=== PATIENT | female | born 1985 | race Caucasian/White ===

== ENCOUNTER 2020-01-11 12:23 | Emergency (ER) | payer MEDICAID, SELFPAY ==
--- NOTE | ~2020-01-11 | XR_ITS ---
EXAMINATION: XR chest 1V portable 01/11/2020 13:05 INDICATION: Transient alteration of awareness PROCEDURE: AP portable chest COMPARISON: 10/01/2018 FINDINGS: The lungs are clear. The cardiomediastinal silhouette is within normal limits. There are no pleural effusions. There is no pneumothorax suspected. IMPRESSION: 1: NO ACUTE CARDIOPULMONARY DISEASE. Reviewed, dictated and finalized at location A.
--- NOTE | ~2020-01-11 | CT_ITS ---
EXAMINATION: CT brain wo con DATE: 01/11/2020 12:29 INDICATION: Right hemiparesis and slurred speech. Slowly responding left pupil. TECHNIQUE: Computed tomography (CT) of the head was performed without intravenous contrast. Sagittal and coronal reconstructions were performed. The mA was adjusted according to patient size. Iterative reconstruction technique was employed. The dose-length product was 605.33 mGy-cm. COMPARISON: None FINDINGS: No acute intracranial hemorrhage, acute infarction or abnormal extra axial fluid collection. There is however increased attenuation of the left middle cerebral artery at the bifurcation between the ante rior and posterior branches which raises concern for thrombus. Ventricles are normal and symmetric. N o mass/mass effect. he orbits, paranasal sinuses and mastoid air cells are normal. IMPRESSION: 1. No evident acute intracranial infarct or hemorrhage, however there is increased attenuation at the bifurcation of the distal left middle cerebral artery raising concern for acute thrombus and an rolf y acute infarct could not be excluded. Dr. Daniels discussed these findings with Dr. Khalil at 12:3 5 PM. Reviewed, dictated and finalized at location A. IMPRESSION: 1. No evident acute intracranial infarct or hemorrhage, however there is increa sed attenuation at the bifurcation of the distal left middle cerebral artery ra ising concern for acute thrombus and an early acute infarct could not be exclud ed. Dr. Daniels discussed these findings with Dr. Khalil at 12:35 PM.
--- NOTE | 2020-01-11 12:32 | ECG_ITS ---
Measurements Intervals [place] Rate: 72 P: 45 FL: 152 QRS: 28 QRSD: 109 T: 9 QT: 379 QTc: 417 Interpretive Statements SINUS RHYTHM BORDERLINE ST-T WAVE ABNORMALITY- INFERIOR LEADS BORDERLINE ECG Electronically Signed On 01-11-2020 12:54:50 CDT by Ganga Shrestha D.O.
[2020-01-11 12:33] VITALS: BP 148/103; PULSE 84; RESP 18; TEMP 37.1; O2SAT 99
[2020-01-11 12:36] LABS: Glucose Point of Care 100 (65-105)
--- NOTE | 2020-01-11 12:43 | ED.NEUROSD ---
HPI - Neuro Symptoms/Deficit General Chief Complaint: Suspected CVA Stated Complaint: ?CVA Time Seen by Provider: 01/11/20 12:24 History of Present Illness HPI Narrative: Patient is a 34-year-old female who presents to the ER with strokelike symptoms. Symptom onset at 1150. Had sudden onset right-sided weakness with difficulty speaking. Patient continues to have weakness in her right arm as well as symptoms of numbness/heaviness. She also seems to have some difficulty finding some of her words. Has not had symptoms like this before. She is a smoker. She does not take any hormone contraceptives. Related Data Allergies Allergy/AdvReac Type Severity Reaction Status Date / Time codeine Allergy Unknown Verified 01/11/20 13:31 Review of Systems Review of Systems: All systems reviewed & are unremarkable except as noted in HPI and below Constitutional: Constitutional: Denies chills, Denies fever(s) and Denies weakness ENT: Denies nasal congestion and Denies sore throat Cardiovascular: Cardiovascular: Denies chest pain and Denies slow heart rate Respiratory: Respiratory: Denies cough, Denies dyspnea and Denies wheezing Gastrointestinal: Gastrointestinal: Denies abdominal pain, Denies nausea and Denies vomiting Neurologic: Reports focal weakness and Reports numbness Comments: Difficulty finding words. PMFSH Past Medical History Medical History (Updated 01/11/20 @ 13:08 by Chepe Khalil MD) No significant past medical history Surgical History Surgical History (Updated 01/11/20 @ 18:23 by Chepe Khalil MD) No significant past surgical history Social History Social History (Updated 01/11/20 @ 18:23 by Chepe Khalil MD) Smoking status: Current every day smoker Exam Narrative: Exam Narrative: GENERAL: Anxious-appearing, well-nourished, and in no acute distress. HEAD: Normocephalic, atraumatic. EYES: PERRLA and EOMI. ENT: Mucous membranes moist. CHEST: Clear to auscultation. No respiratory distress. HEART: Regular rate and rhythm. Normal peripheral pulses. ABDOMEN: Soft, nontender, nondistended. EXTREMITIES: Normal range of motion. No edema. SKIN: Warm, dry, no rash. NEURO: Significant right upper extremity drift with sensation of numbness to the right arm but sharp touch intact. Slight drift in the right lower extremity when compared to the left. [id number] testing negative. Patient having difficulty with [id number]-[id number] testing on the right side. Cranial nerves II through XII intact.. Alert and oriented x3 but is having difficulty coming with answers to basic medical questions. PSYCH: Normal mood and affect. Course Reevaluation(s) Reevaluation #1: Contacted by nursing staff. Sensation worsening. Patient a stroke scale of 8. Discussed with [facility], recommend [facility] and transfer, Dr. Martin accepted in the ER. Date: 01/11/20 Time: 13:07 Reevaluation #2: 2 separate ambulance companies unavailable to transfer patient. As this is a time dependent diagnosis and treatment [facility] medical transport will be contracted for transfer of patient. Date: 01/11/20 Time: 13:12 Reevaluation #3: [facility] is arrived to transfer the patient to [facility]. Patient's motor exam is improving however her expressive aphasia is worsening. She can tell me her name but is now unable to tell me what building she is in or what diagnosis she received. She reports she is aware of her diagnosis but cannot tell me what it is. Date: 01/11/20 Time: 13:31 Vital Signs Vital signs: Vital Signs Temperature 98.7 F 01/11/20 12:33 Pulse Rate 84 01/11/20 12:33 Respiratory Rate 18 01/11/20 12:33 Blood Pressure 148/103 H 01/11/20 12:33 Pulse Oximetry 99 01/11/20 12:33 Temperature 97.1 F L 01/11/20 13:28 Pulse Rate 64 01/11/20 13:28 Respiratory Rate 13 01/11/20 13:28 Blood Pressure 112/79 01/11/20 13:28 Pulse Oximetry 100 01/11/20 13:28 MDM - Neuro Symptoms/Deficit Lab Data Res
[2020-01-11 12:55] VITALS: BP 117/78; PULSE 83; RESP 20; O2SAT 100
[2020-01-11 12:57] VITALS: BP 117/74; PULSE 116; RESP 20
[2020-01-11 12:58] LABS: Basophils Percent Auto 0.2 % (0.2-1.2); Eosinophils Percent Auto 0.3 % (0-4.4); Hematocrit 41.3 % (37.0-47.0); Hemoglobin 14.2 g/dL (12.0-15.0); Immature Granulocyte Absolute 0.04 K/mm3 (0.00-0.031); Immature Granulocyte Percent A 0.4 % (0-0.5); Lymphocytes Absolute Auto 1.77 K/mm3 (0.9-3.2); Lymphocytes Percent Auto 15.6 % (18.3-44.2); Mean Corpuscular HGB Conc 34.4 g/dl (32-36); Monocytes Absolute Auto 0.5 K/mm3 (0.1-0.6); Monocytes Percent Auto 4.1 % (2.6-8.5); Neutrophils Percent Auto 79.4 % (45.5-73.1); Platelet Count Result 259 k/mm3 (150-375); Red Blood Count 4.44 M/mm3 (4.2-5.4); Red Cell Distribution Width 12.8 % (11.5-14.5); White Blood Count 11.4 K/mm3 (4.5-10.0)
[2020-01-11 13:07] LABS: INR 0.9; Prothrombin Time 12.3 Seconds (11.1-14.7)
[2020-01-11 13:08] LABS: Partial Thromboplastin Time 24.1 SECONDS (22.3-36.8)
[2020-01-11 13:10] VITALS: BP 116/78; PULSE 73; RESP 13; TEMP 36.8; O2SAT 100
--- NOTE | 2020-01-11 13:11 | PC.NURSE ---
report called to nina powers called for transport
[2020-01-11 13:14] LABS: Blood Urea Nitrogen 9 mg/dL (7-17); Calcium 9.1 mg/dL (8.4-10.2); Carbon Dioxide 25 mmol/L (22-30); Chloride 104 mmol/L (98-107); Estimated CRCL calculation 116 ml/min; Estimated Glomerular Filt Rate > 60; Glucose 94 mg/dL (65-105); Potassium 3.5 mmol/L (3.4-5.0); Sodium 137 mmol/L (137-145)
--- NOTE | 2020-01-11 13:23 | PC.NURSE ---
Patient is noted to have some increase in slurring and gabled speech when asked to tell me her name. EDP in room and aware. Patient informed on decision to fly her to [facility]. ED Charge has notified her family member per patient request.
[2020-01-11 13:24] VITALS: BP 108/71; PULSE 63; RESP 14; TEMP 36.6; O2SAT 98
[2020-01-11 13:28] VITALS: BP 112/79; PULSE 64; RESP 13; TEMP 36.2; O2SAT 100
--- NOTE | 2020-01-11 13:29 | PC.NURSE ---
EDP in room. Patient noted to have increased expressive aphasia. She is not able to tell us where she is or why she is here. She is awake and alert.
[2020-01-11 13:30] LABS: Troponin I < 0.012 ng/mL (0.000-0.034)
== END 2020-01-11 14:10 | disposition short-term general hospital (02) ==
PROVIDERS: Emergency Provider Emergency Medicine; PCP Family Medicine
DX: I63.512 Cerebral infarction due to unspecified occlusion or stenosis of left middle cerebral artery (principal); R29.705 NIHSS score 5; F17.200 Nicotine dependence, unspecified, uncomplicated; R94.31 Abnormal electrocardiogram [ECG] [EKG]
CPT/HCPCS: 36415; 37195; 70450; 71045; 80048; 82948; 84484; 85025; 85610; 85730; 93005; 99285; J2997